=== PATIENT | female | born 1945 | race African-American/Black ===

== ENCOUNTER 2017-04-14 11:41 | Emergency (ER) | payer MEDICAID, MEDICARE, OTHER ==
[~2017-04-14] VITALS: Ht 167.6 cm; Wt 77.1 kg
[2017-04-14] MEDS ORDERED: CIPRO500 MG PO (12:28)
[2017-04-14] MEDS ORDERED: ASPIR 8181 MG ORAL (12:28)
[2017-04-14] MEDS ORDERED: PLAVIX75 MG ORAL (12:28)
[2017-04-14] MEDS ORDERED: LAMICTAL100 MG ORAL (12:28)
[2017-04-14] MEDS ORDERED: ATENOLOL50 MG ORAL (12:28)
[2017-04-14] MEDS ORDERED: ATORVASTATIN CA40 MG ORAL (12:28)
[2017-04-14 12:44] LABS: APPEARANCE,URINE CLEAR; KETONES,URINE NEGATIVE (NEGATIVE); LEUKOCYTE ESTERASE ,URINE NEGATIVE (NEGATIVE); NITRITE,URINE NEGATIVE (NEGATIVE); PH,URINE 6 (4.5-8.0); PROTEIN,URINE NEGATIVE (NEGATIVE); UROBILINOGEN,URINE NORMAL MG/DL (0.0-1.0)
[2017-04-14] MEDS ORDERED: TRIAM/HCTZ (12:45)
[2017-04-14] MEDS ORDERED: VITAMIN C500 M1 ORAL (12:45)
[2017-04-14] MEDS ORDERED: TRAZODONE HCL100 MG ORAL (12:45)
[2017-04-14] MEDS ORDERED: MILK OF MA400 MG/51 ORAL (12:45)
[2017-04-14 13:23] VITALS: BP 129/50
[2017-04-14] MEDS ORDERED: PHENAZOPYRIDIN100 MG ORAL (13:24)
[2017-04-14] MEDS ORDERED: Levofloxacin 500mg tab ORAL ONE (13:30)
[2017-04-14] MEDS ORDERED: Fluconazole 100mg tab ORAL ONE (13:30)
[2017-04-14] MEDS ORDERED: LEVAQUIN750 MG ORAL (13:32)
[2017-04-14] MEDS ORDERED: AMOXICILLIN500 MG ORAL (13:34)
[2017-04-14 14:42] VITALS: BP 129/50
--- NOTE | 2017-04-15 07:37 | Emergency Room Report ---
History of Present Illness General Chief Complaint: Female Urogenital Problems Source: Medical Record Present Illness HPI 72-year-old female presents ED for evaluation. Patient is complaining of dysuria x3 days. Denies any fevers or chills. Denies flank pain. Notes history of frequent UTI. Patient states that she was prescribed Cipro earlier this month for UTI. Denies any abdominal pain. 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 Patient resides in [facility]. No other aggravating relieving factors. Denies any other associated symptoms Allergies: Coded Allergies: LEXY INHIBITORS (Verified Allergy, Unknown, 04/14/17) Patient History Past Medical History: HTN, CVA/TIA Past Surgical History: none Pertinent Family History: none Social History: Denies: smoking, alcohol use, drug use Now: No Immunizations: UTD Reviewed Nursing Documentation: PMH: Agreed, PSxH: Agreed Nursing Documentation-PMH Hx Hypertension: Yes Hx Dialysis: No - CKD Hx Cerebrovascular Accident: Yes - with hemiplegia Review of Systems All Other Systems: negative except mentioned in HPI Physical Exam Vital Signs Date Time Temp Pulse Resp B/P (MAP) Pulse Ox O2 Delivery O2 Flow Rate FiO2 04/14/17 11:43 97.7 60 18 114/67 96 Room Air Sp02 EP Interpretation: reviewed, normal General Appearance: no apparent distress, alert, GCS 15, non-toxic Head: normocephalic, atraumatic Eyes: bilateral eye normal inspection, bilateral eye PERRL ENT: hearing grossly normal, normal pharynx, no angioedema, normal voice Neck: full range of motion, supple/symm/no masses Respiratory: chest non-tender, lungs clear, normal breath sounds, speaking full sentences Cardiovascular #1: regular rate, rhythm, no edema Cardiovascular #2: 2+ carotid (R), 2+ carotid (L), 2+ radial (R), 2+ radial (L) , 2+ dorsalis pedis (R), 2+ dorsalis pedis (L) Gastrointestinal: normal bowel sounds, non tender, soft, non-distended, no guarding, no rebound Rectal: deferred Genitourinary: normal inspection, no CVA tenderness Musculoskeletal: back normal, non-tender Neurologic: alert, oriented x3, responsive, speech normal Psychiatric: judgement/insight normal, memory normal, mood/affect normal, no suicidal/homicidal ideation Reflexes: 3+ bicep (R), 3+ bicep (L), 3+ tricep (R), 3+ tricep (L), 3+ knee (R) , 3+ knee (L) Skin: normal color, no rash, warm/dry, well hydrated Lymphatic: no adenopathy Medical Decision Making Diagnostic Impression: Primary Impression: Dysuria Additional Impression: Atypical pneumonia ER Course Hospital Course 72-year-old female presents to ED complaining of dysuria Differential diagnoses include: UTI, cystitis, pyelonephritis Clinical course Patient placed on stretcher. After initial history and physical I ordered UA UA noted to be unremarkable. Patient recently treated for UTI with Cipro. I will give Flagyl here. Will prescribe pyridium for the dysuria Patient also complaining of cough, productive x3 weeks. We will treat as a typical pneumonia. Lungs clear. Afebrile Given Levaquin here Diagnosis -dysuria, atypical pneumonia Stable and discharged home with prescriptions for Rx Levaquin, Pyridium. Instructed to followup with PMD. Return to ED if symptoms recur or worsen Labs Test 04/14/17 12:17 Urine Color Pale yellow Urine Appearance Clear Urine pH 6 (4.5-8.0) Urine Specific [place] 1.020 (1.005-1.035) Urine Protein Negative (NEGATIVE) Urine Glucose (UA) Negative (NEGATIVE) Urine Ketones Negative (NEGATIVE) Urine Occult Blood Negative (NEGATIVE) Urine Nitrite Negative (NEGATIVE) Urine Bilirubin Negative (NEGATIVE) Urine Urobilinogen Normal MG/DL (0.0-1.0) Urine Leukocyte Esterase Negative (NEGATIVE) Last Vital Signs Date Time Temp Pulse Resp B/P (MAP) Pulse Ox O2 Delivery O2 Flow Rate FiO2 04/14/17 14:42 97.7 71 18 129/50 100 Room Air Status: improved Disposition: ASSISTED LIVING Condition: Stable Scripts Amoxicillin* (AMOXIL*) 500 Mg Capsule 500 MG ORAL THREE TIMES A DAY, #21 CAP Prov: SAEID HERRERA M.D. 04/14/17 Phenazopyridine Hcl* (PYRIDIUM*) 100 Mg Tablet 100 MG ORAL THREE TIMES A DAY for 3 Days, TAB Prov: SAEID HERRERA M.D. 04/14/17 Referrals: [facility],REFERRING (PCP) Patient Instructions: Dysuria SAEID HERRERA M.D. Apr 15, 2017 07:37
== END 2017-04-14 14:45 | disposition home or self-care (01) ==
LOC: EDBD 11:41 → EDUNIT# 11:41 → EMR 12:20
DX: R30.0 Dysuria (principal); J18.9 Pneumonia, unspecified organism; I12.9 Hypertensive chronic kidney disease with stage 1 through stage 4 chronic kidney disease, or unspecified chronic kidney disease; N18.9 Chronic kidney disease, unspecified; I69.859 Hemiplegia and hemiparesis following other cerebrovascular disease affecting unspecified side; Z88.8 Allergy status to other drugs, medicaments and biological substances
CPT/HCPCS: 81003; 99284

== ENCOUNTER 2019-02-20 11:24 | Emergency (ER) | payer MEDICARE ==
[~2019-02-20] VITALS: Ht 160 cm; Wt 74.8 kg
[~2019-02-20 11:24] MED LIST: AMOXICILLIN500 MG ORAL; ASPIR 8181 MG ORAL; ATENOLOL50 MG ORAL; ATORVASTATIN CA40 MG ORAL; CIPRO500 MG PO; LAMICTAL100 MG ORAL; LEVAQUIN750 MG ORAL; MILK OF MA400 MG/51 ORAL; PHENAZOPYRIDIN100 MG ORAL; PLAVIX75 MG ORAL; TRAZODONE HCL100 MG ORAL; TRIAM/HCTZ; VITAMIN C500 M1 ORAL
--- NOTE | 2019-02-20 11:30 | NUR ---
ED Nurse Note: Patient brought in by ambulance from [facility] c/o RLQ abdomen 02/23. patient is alert awake breathing unlabored and even, skin is warm to touch.
[2019-02-20] MEDS ORDERED: DYAZIDE 37.5-21 EACH PO (11:40)
[2019-02-20] MEDS ORDERED: OMEPRAZOLE20 M2 ORAL (11:40)
[2019-02-20] MEDS ORDERED: FUROSEMIDE20 M1 ORAL (11:40)
[2019-02-20] MEDS ORDERED: LEVETIRACETAM500 M1 ORAL (11:40)
[2019-02-20] MEDS ORDERED: TRAZODONE HCL150 MG ORAL (11:41)
[2019-02-20] MEDS ORDERED: Isovue-300 100ml vial INJ PRN (11:45)
[2019-02-20 12:33] LABS: BASOPHILS % (AUTO) 1.4 % (0.0-2.0); EOSINOPHILS % (AUTO) 2.2 % (0.0-3.0); HEMATOCRIT 42.4 % (37.0-47.0); HEMOGLOBIN 13.7 G/DL (12.0-16.0); LYMPHOCYTES % (AUTO) 27.6 % (20.0-45.0); MEAN CORPUSCULAR VOLUME 91 FL (80-99); MONOCYTES % (AUTO) 10.7 % (1.0-10.0); NEUTROPHILS % (AUTO) 58.1 % (45.0-75.0); PLATELET COUNT 337 K/UL (150-450); RED BLOOD COUNT 4.67 M/UL (4.20-5.40); RED CELL DISTRIBUTION WIDTH 12.2 % (11.6-14.8); WHITE BLOOD COUNT 6.7 K/UL (4.8-10.8)
[2019-02-20 12:34] LABS: APPEARANCE,URINE CLEAR; BILIRUBIN, URINE NEGATIVE (NEGATIVE); COLOR,URINE PALE YELLOW; GLUCOSE, URINE (UA) NEGATIVE (NEGATIVE); KETONES,URINE NEGATIVE (NEGATIVE); LEUKOCYTE ESTERASE ,URINE 1+ (NEGATIVE); NITRITE,URINE NEGATIVE (NEGATIVE); PH,URINE 6.5 (4.5-8.0); PROTEIN,URINE NEGATIVE (NEGATIVE); UROBILINOGEN,URINE NORMAL MG/DL (0.0-1.0)
[2019-02-20 12:38] LABS: ANION GAP 8 mmol/L (5-15); BLOOD UREA NITROGEN 20 mg/dL (7-18); CARBON DIOXIDE 33 MMOL/L (21-32); CHLORIDE 100 MMOL/L (98-107); CREATININE 1.5 MG/DL (0.55-1.30); POTASSIUM 3.3 MMOL/L (3.5-5.1); SODIUM 141 MMOL/L (136-145)
[2019-02-20 12:42] LABS: ALANINE AMINOTRANSFERASE 22 U/L (12-78); ALBUMIN 3.7 G/DL (3.4-5.0); ALBUMIN/GLOBULIN RATIO 0.8 (1.0-2.7); ALKALINE PHOSPHATASE 157 U/L (46-116); ASPARTATE AMINO TRANSFERASE 23 U/L (15-37); BILIRUBIN,TOTAL 0.3 MG/DL (0.2-1.0)
[2019-02-20 12:51] VITALS: BP 138/62
--- NOTE | 2019-02-20 13:13 | NUR ---
ED Nurse Note: patient came back from CT
--- NOTE | 2019-02-20 13:30 | Diagnostic Imaging Report ---
EXAM: CT Abdomen and Pelvis With Intravenous Contrast CLINICAL HISTORY: ABD PAIN TECHNIQUE: Axial computed tomography images of the abdomen and pelvis with intravenous contrast. CTDI is 19 mGy and DLP is 1013 mGy-cm. One or more of the following dose reduction techniques were used: automated exposure control, adjustment of the mA and/or kV according to patient size, use of iterative reconstruction technique. COMPARISON: No relevant prior studies available. FINDINGS: Lung bases: Unremarkable. No mass. No consolidation. ABDOMEN: Liver: Unremarkable. No mass. Gallbladder and bile ducts: Unremarkable. No calcified stones. No ductal dilation. Pancreas: Unremarkable. No mass. No ductal dilation. Spleen: Unremarkable. No splenomegaly. Adrenals: Unremarkable. No mass. Kidneys and ureters: Unremarkable. No solid mass. No hydronephrosis. Stomach and bowel: Unremarkable. No obstruction. No mucosal thickening. PELVIS: Appendix: No findings to suggest acute appendicitis. Bladder: Unremarkable. No mass. Reproductive: The uterus is not visualized. ABDOMEN and PELVIS: Intraperitoneal space: Unremarkable. No free air. No significant fluid collection. Bones/joints: Moderate to severe degenerative changes in the lumbar spine. No acute fracture. No dislocation. Soft tissues: Tiny fat-containing umbilical hernia measures 8 mm transversely. Vasculature: Proper showing calcification in the abdominal aorta and bilateral iliac arteries. No abdominal aortic aneurysm. Lymph nodes: Unremarkable. No enlarged lymph nodes. IMPRESSION: No acute abdominal or pelvic pathology. No CT cause for abdominal pain is identified.
--- NOTE | 2019-02-20 13:39 | Emergency Room Report ---
History of Present Illness General Chief Complaint: General Complaint Source: Patient (Harshad Peterson MD) Present Illness HPI 73-year-old female presents to ED for evaluation. Brought in by EMS from assisted living facility for abdominal pain for the last 4 days. States that she has not had a bowel movement in 4 days. Pain is sharp, 7 out of 10, nonradiating. Notes nausea, denies vomiting. Denies fevers or chills. Denies chest pain or shortness of breath. No other aggravating or relieving factors. Denies any other associated symptoms (Harshad Peterson MD) Allergies: Coded Allergies: LEXY INHIBITORS (Verified Allergy, Unknown, 04/14/17) Patient History Past Medical History: HTN, CVA/TIA, seizures Pertinent Family History: none Social History: Denies: smoking, alcohol use, drug use Now: No Immunizations: UTD Reviewed Nursing Documentation: PMH: Agreed; PSxH: Agreed (Harshad Peterson MD) Nursing Documentation-PMH Hx Hypertension: Yes Hx Dialysis: No - CKD Hx Cerebrovascular Accident: Yes - with hemiplegia,ckd Hx Seizures: Yes (Harshad Peterson MD) Review of Systems All Other Systems: negative except mentioned in HPI (Harshad Peterson MD) Physical Exam Vital Signs Date Time Temp Pulse Resp B/P (MAP) Pulse Ox O2 Delivery O2 Flow Rate FiO2 02/20/19 11:25 97.9 68 16 140/59 (86) 97 Room Air Sp02 EP Interpretation: reviewed, normal General Appearance: no apparent distress, alert, GCS 15, non-toxic Head: normocephalic, atraumatic Eyes: bilateral eye normal inspection, bilateral eye PERRL ENT: hearing grossly normal, normal pharynx, no angioedema, normal voice Neck: full range of motion, supple/symm/no masses Respiratory: chest non-tender, lungs clear, normal breath sounds, speaking full sentences Cardiovascular #1: regular rate, rhythm, no edema Cardiovascular #2: 2+ carotid (R), 2+ carotid (L), 2+ radial (R), 2+ radial (L) , 2+ dorsalis pedis (R), 2+ dorsalis pedis (L) Gastrointestinal: normal bowel sounds, soft, non-distended, no guarding, no rebound, tenderness Rectal: deferred Genitourinary: normal inspection, no CVA tenderness Musculoskeletal: back normal, gait/station normal, normal range of motion, non- tender Neurologic: alert, oriented x3, responsive, other - L sided deficit Psychiatric: judgement/insight normal, memory normal, mood/affect normal, no suicidal/homicidal ideation Reflexes: 3+ bicep (R), 3+ bicep (L), 3+ tricep (R), 3+ tricep (L), 3+ knee (R) , 3+ knee (L) Lymphatic: no adenopathy (Harshad Peterson MD) Medical Decision Making Diagnostic Impression: Primary Impression: CKD (chronic kidney disease) Additional Impressions: Abdominal pain Hypokalemia Constipation Labs Test 02/20/19 12:00 White Blood Count 6.7 K/UL (4.8-10.8) Red Blood Count 4.67 M/UL (4.20-5.40) Hemoglobin 13.7 G/DL (12.0-16.0) Hematocrit 42.4 % (37.0-47.0) Mean Corpuscular Volume 91 FL (80-99) Mean Corpuscular Hemoglobin 29.3 PG (27.0-31.0) Mean Corpuscular Hemoglobin Concent 32.2 G/DL (32.0-36.0) Red Cell Distribution Width 12.2 % (11.6-14.8) Platelet Count 337 K/UL (150-450) Mean Platelet Volume 6.4 FL (6.5-10.1) Neutrophils (%) (Auto) 58.1 % (45.0-75.0) Lymphocytes (%) (Auto) 27.6 % (20.0-45.0) Monocytes (%) (Auto) 10.7 % (1.0-10.0) Eosinophils (%) (Auto) 2.2 % (0.0-3.0) Basophils (%) (Auto) 1.4 % (0.0-2.0) Urine Color Pale yellow Urine Appearance Clear Urine pH 6.5 (4.5-8.0) Urine Specific [place] 1.010 (1.005-1.035) Urine Protein Negative (NEGATIVE) Urine Glucose (UA) Negative (NEGATIVE) Urine Ketones Negative (NEGATIVE) Urine Blood Negative (NEGATIVE) Urine Nitrite Negative (NEGATIVE) Urine Bilirubin Negative (NEGATIVE) Urine Urobilinogen Normal MG/DL (0.0-1.0) Urine Leukocyte Esterase 1+ (NEGATIVE) Urine RBC 0 /HPF (0 - 2) Urine WBC 5-10 /HPF (0 - 2) Urine Squamous Epithelial Cells Few /LPF (NONE/OCC) Urine Bacteria Moderate /HPF (NONE) Sodium Level 141 MMOL/L (136-145) Potassium Level 3.3 MMOL/L (3.5-5.1) Chloride Level 100 MMOL/L (98-107) Carbon Dioxide Level 33 MMOL/L (21-32) Anion Gap 8 mmol/L (5-15) Blood Urea Nitrogen 20 mg/dL (7-18) Creatinine 1.5 MG/DL (0.55-1.30) Estimat Glomerular Filtration Rate mL/min (>60) Glucose Level 112 MG/DL (74-106) Calcium Level 10.0 MG/DL (8.5-10.1) Total Bilirubin 0.3 MG/DL (0.2-1.0) Aspartate Amino Transf (AST/SGOT) 23 U/L (15-37) Alanine Aminotransferase (ALT/SGPT) 22 U/L (12-78) Alkaline Phosphatase 157 U/L (46-116) Total Protein 8.3 G/DL (6.4-8.2) Albumin 3.7 G/DL (3.4-5.0) Globulin 4.6 g/dL Albumin/Globulin Ratio 0.8 (1.0-2.7) Lipase 240 U/L (73-393) (Harshad Peterson MD) ER Course Please see above note. Dr. Peterson felt this patient needed observation. Patient discussed with Dr. Arevalo. She feels this is inappropriate transfer. The patient is stable for transfer. If she does not want the patient transferred we can admit for observation here. Patient will have ongoing IV hydration as she has some dehydration and renal dysfunction. Potassium will be administered. Concern also for possible ischemic bowel although no bowel compromise at this time. Improved and stable for transfer. (Kei Mendez MD) CT/MRI/US Diagnostic Results CT/MRI/US Diagnostic Results : Imaging Test Ordered: CT A/P Impression FINDINGS: Lung bases: Unremarkable. No mass. No consolidation. ABDOMEN: Liver: Unremarkable. No mass. Gallbladder and bile ducts: Unremarkable. No calcified stones. No ductal dilation. Pancreas: Unremarkable. No mass. No ductal dilation. Spleen: Unremarkable. No splenomegaly. Adrenals: Unremarkable. No mass. Kidneys and ureters: Unremarkable. No solid mass. No hydronephrosis. Stomach and bowel: Unremarkable. No obstruction. No mucosal thickening. PELVIS: Appendix: No findings to suggest acute appendicitis. Bladder: Unremarkable. No mass. Reproductive: The uterus is not visualized. ABDOMEN and PELVIS: Intraperitoneal space: Unremarkable. No free air. No significant fluid collection. Bones/joints: Moderate to severe degenerative changes in the lumbar spine. No acute fracture. No dislocation. Soft tissues: Tiny fat-containing umbilical hernia measures 8 mm transversely. Vasculature: Proper showing calcification in the abdominal aorta and bilateral iliac arteries. No abdominal aortic aneurysm. Lymph nodes: Unremarkable. No enlarged lymph nodes. (Harshad Peterson MD) Last Vital Signs Date Time Temp Pulse Resp B/P (MAP) Pulse Ox O2 Delivery O2 Flow Rate FiO2 02/20/19 12:51 97.9 62 15 138/62 98 Room Air Status: improved (Harshad Peterson MD) Status: improved (Kei Mendez MD) Disposition: XFER [facility], [facility] Condition: Serious Referrals: NON PHYSICIAN (PCP) Harshad Peterson MD Feb 20, 2019 13:39 Kei Mendez MD Feb 20, 2019 15:17
[2019-02-20] MEDS ORDERED: Morphine Sulfate 4mg/ml Inj (IV USE ONLY) IVP ONE (14:00)
--- NOTE | 2019-02-20 15:11 | NUR ---
ED Nurse Note: patient is reporting less pain 3/10 on the abdomen.
[2019-02-20] MEDS ORDERED: Sodium Chloride 550 ML IV SCH (15:30)
[2019-02-20 17:05] VITALS: BP 138/62
--- NOTE | 2019-02-20 17:07 | NUR ---
ED Nurse Note: patient is being transferred to [facility] ambulance with all of her belongings.
== END 2019-02-20 17:09 | disposition short-term general hospital (02) ==
LOC: EDBD 11:24 → EDUNIT# 11:24 → EMR 11:55
DX: R10.9 Unspecified abdominal pain (principal); K59.00 Constipation, unspecified; E87.6 Hypokalemia; I12.9 Hypertensive chronic kidney disease with stage 1 through stage 4 chronic kidney disease, or unspecified chronic kidney disease; N18.9 Chronic kidney disease, unspecified; G40.909 Epilepsy, unspecified, not intractable, without status epilepticus; G81.90 Hemiplegia, unspecified affecting unspecified side; Z88.8 Allergy status to other drugs, medicaments and biological substances
CPT/HCPCS: 36415; 74176; 80053; 81003; 83690; 85025; 87086; 96361; 96374; 99285; J2270; J7040; J8499